=== PATIENT | male | born 1970 | race Caucasian/White ===

== ENCOUNTER → 2017-10-22 15:56 | Outpatient (CLI) | payer BC, SELFPAY ==
--- NOTE | 2017-10-22 15:59 | DI.RAD.S_ITS ---
PROCEDURE: XR FOOT LT MIN 3V INDICATIONS: LEFT FORFOOT PAIN,CHRONIC TECHNIQUE: 3 views of the foot were acquired. COMPARISON: None. FINDINGS: Bones: Mild interphalangeal joint space narrowing second and third toes. No fractures or dislocations. No suspicious bony lesions. Small accessory navicular. Soft tissues: No tibiotalar joint effusion. Achilles tendon appears normal. IMPRESSION: Mild arthritis. Dictated by: Jarrod Spear M.D. on 10/22/2017 at 16:25 Approved by: Jarrod Spear M.D. on 10/22/2017 at 16:27
== END ==
PROVIDERS: Family Provider Family Medicine; PCP Family Medicine; Visit Provider Family Medicine
DX: M19.072 Primary osteoarthritis, left ankle and foot (principal); M79.672 Pain in left foot; G89.29 Other chronic pain
CPT/HCPCS: 73630

== ENCOUNTER → 2019-10-25 11:47 | Outpatient (CLI) | payer BC, SELFPAY | PROVIDERS: Family Provider Family Medicine; PCP Student in an Organized Health Care Education/Training Program; Referring Provider Pain Medicine Pain Medicine; Visit Provider Pain Medicine Pain Medicine | DX: F11.90 Opioid use, unspecified, uncomplicated (principal) | CPT/HCPCS: 93005 ==

== ENCOUNTER → 2020-08-01 10:03 | Outpatient (CLI) | payer BC, SELFPAY ==
--- NOTE | 2020-08-01 10:04 | DI.RAD.S_ITS ---
PROCEDURE: XR LUMBAR SPINE MIN 4V INDICATIONS: Spinal stenosis, lumbar region without neurogenic TECHNIQUE: 5 views of the lumbar spine were acquired, including bilateral oblique views. COMPARISON: [facility], , L-SPINE 2-3 VIEWS, 11/06/2006, 14:51. FINDINGS: Bones: 5 nonrib-bearing vertebrae are present. There is normal bony alignment. No vertebral body compression fractures. No suspicious bony lesions. There is a slight degree of degenerative disc disease with disc height reduction at L4-5 and L5-S1. Facet osteoarthritis is minimal at L3-4, mild at L4-5 and [id number] at L5-S1. There may be spinal and foraminal stenosis at L5-S1 as a result. No prior compression fracture found. Soft tissues: Overlying bowel gas pattern is normal. No suspicious soft tissue calcifications. Oblique images: No pars defects. IMPRESSION: Mild degenerative changes without subluxation best seen at the L5-S1 level. No prior trauma such as compression fracture found. Dictated by: Domenic Hernandez M.D. on 08/01/2020 at 11:42 Approved by: Domenic Hernandez M.D. on 08/01/2020 at 11:43
== END ==
PROVIDERS: PCP Student in an Organized Health Care Education/Training Program; Referring Provider Pain Medicine Pain Medicine; Visit Provider Pain Medicine Pain Medicine
DX: M47.816 Spondylosis without myelopathy or radiculopathy, lumbar region (principal); M47.817 Spondylosis without myelopathy or radiculopathy, lumbosacral region
CPT/HCPCS: 72110

== ENCOUNTER → 2021-02-14 16:27 | Outpatient (CLI) | payer BC, SELFPAY ==
--- NOTE | 2021-02-14 | DI.RAD.S_ITS ---
PROCEDURE: XR KUB INDICATIONS: M54.6 TECHNIQUE: One view of the abdomen acquired. COMPARISON: None. FINDINGS: Surgical changes and devices: None. Bowel: Significant fecal stasis throughout the colon is seen extending to the rectum. Soft tissues: No suspicious abdominal calcifications. Visualized solid organ contours appear normal in size. Bones: No suspicious bony lesions. IMPRESSION: No gross renal calcification is seen. Significant constipation and fecal impaction. No gross free air. Dictated by: Bernardino Coombs M.D. on 02/14/2021 at 17:15 Approved by: Bernardino Coombs M.D. on 02/14/2021 at 17:15
== END ==
PROVIDERS: PCP Student in an Organized Health Care Education/Training Program; Referring Provider Student in an Organized Health Care Education/Training Program; Visit Provider Student in an Organized Health Care Education/Training Program
DX: M54.6 Pain in thoracic spine (principal); K59.00 Constipation, unspecified; K56.41 Fecal impaction
CPT/HCPCS: 74018